=== PATIENT | male | born 1950 | race Caucasian/White ===

== ENCOUNTER 2017-07-19 10:40 | Emergency (ER) | payer MEDICARE, OTHER ==
[2017-07-19 10:51] VITALS: BP 119/73
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
== END 2017-07-19 11:47 | disposition home or self-care (01) ==
LOC: UCEAST 10:40
DX: J20.9 Acute bronchitis, unspecified (principal); E03.9 Hypothyroidism, unspecified; E78.5 Hyperlipidemia, unspecified; I10 Essential (primary) hypertension; K21.9 Gastro-esophageal reflux disease without esophagitis; F32.9 Major depressive disorder, single episode, unspecified; Z79.01 Long term (current) use of anticoagulants; Z71.6 Tobacco abuse counseling; F17.210 Nicotine dependence, cigarettes, uncomplicated
CPT/HCPCS: 99212; G0463

== ENCOUNTER 2019-05-27 10:15 | Emergency (ER) | payer MEDICARE, OTHER ==
[2019-05-27 11:07] VITALS: BP 145/84
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
== END 2019-05-27 12:20 | disposition home or self-care (01) ==
LOC: UCCORT 10:15
DX: M70.71 Other bursitis of hip, right hip (principal); I10 Essential (primary) hypertension; I48.91 Unspecified atrial fibrillation; F17.210 Nicotine dependence, cigarettes, uncomplicated; Z79.01 Long term (current) use of anticoagulants
CPT/HCPCS: 99212; G0463